=== PATIENT | female | born 1940 | race Caucasian/White ===

== ENCOUNTER → 2016-11-07 | Outpatient (CLI) | payer MEDICARE, OTHER ==
[~2016-11-07] MED LIST: CALC-138 PO; CHOL20003 PO; DULO60CA7 PO; GABA300C PO; HYDR-3138 PO; LEVO150T PO; NAPR1TAB21 PO; ZOLP10TA PO
== END | disposition home or self-care (01) ==
LOC: CFH 11:01
PROVIDERS: ATTEND Family Medicine
DX: Z12.31 Encounter for screening mammogram for malignant neoplasm of breast (principal)
CPT/HCPCS: G0202

== ENCOUNTER → 2017-11-10 | Outpatient (CLI) | payer MEDICARE, OTHER ==
[~2017-11-10] MED LIST changes: +CHOL2000 PO; -CHOL20003 PO; -HYDR-3138 PO; +HYDR-3237 PO
== END ==
LOC: CFH 09:17
PROVIDERS: ATTEND Family Medicine
DX: Z12.31 Encounter for screening mammogram for malignant neoplasm of breast (principal); Z13.820 Encounter for screening for osteoporosis; M81.8 Other osteoporosis without current pathological fracture; N95.9 Unspecified menopausal and perimenopausal disorder
CPT/HCPCS: 77080; 77067

== ENCOUNTER → 2018-02-25 | Outpatient (CLI) | payer MEDICARE, OTHER ==
[~2018-02-25] MED LIST changes: +REGADENOSON 0.4 MG/5 ML SYRINGE ONE
== END | disposition home or self-care (01) ==
LOC: CFH 07:32
PROVIDERS: ATTEND Internal Medicine Cardiovascular Disease
DX: Z01.810 Encounter for preprocedural cardiovascular examination (principal); I35.0 Nonrheumatic aortic (valve) stenosis; I45.10 Unspecified right bundle-branch block; Z87.891 Personal history of nicotine dependence
CPT/HCPCS: 78452; 93017; A9502; J2785

== ENCOUNTER → 2018-11-12 | Outpatient (CLI) | payer MEDICARE, OTHER ==
[~2018-11-12] MED LIST changes: -REGADENOSON 0.4 MG/5 ML SYRINGE ONE
== END | disposition home or self-care (01) ==
LOC: CFH 09:42
PROVIDERS: ATTEND Family Medicine
DX: Z12.31 Encounter for screening mammogram for malignant neoplasm of breast (principal)
CPT/HCPCS: 77063; 77067

== ENCOUNTER → 2019-12-28 | Outpatient (CLI) | payer MEDICARE, OTHER | END | disposition home or self-care (01) | LOC: CFH 12:35 | PROVIDERS: ATTEND Family Medicine | DX: Z12.31 Encounter for screening mammogram for malignant neoplasm of breast (principal) | CPT/HCPCS: 77067 ==

== ENCOUNTER → 2020-02-21 | Outpatient (CLI) | payer MEDICARE, OTHER ==
[~2020-02-21] MED LIST changes: +FLUO40CA2 PO; +MIDO2.5T PO; +PREG150C PO; +PREG75CA PO; +TIZA4TAB2 PO
== END | disposition home or self-care (01) ==
LOC: CFH 11:14
PROVIDERS: ATTEND Internal Medicine Cardiovascular Disease
DX: R55 Syncope and collapse (principal); I49.5 Sick sinus syndrome; I50.9 Heart failure, unspecified; Z95.0 Presence of cardiac pacemaker
CPT/HCPCS: 71046

== ENCOUNTER 2020-02-22 06:09 | Observation (INO) | payer MEDICARE, OTHER ==
[~2020-02-22] VITALS: Ht 170.2 cm; Wt 84.1 kg
[~2020-02-22 06:09] MED LIST changes: -FLUO40CA2 PO; -MIDO2.5T PO; -PREG75CA PO
[2020-02-22] MEDS ORDERED: SODIUM CHLORIDE 0.9% 1,000 ML IV SCH (06:27)
[2020-02-22 06:33] VITALS: BP 148/66
[2020-02-22] MEDS ORDERED: PREG75CA PO (06:43)
[2020-02-22] MEDS ORDERED: MIDO2.5T PO (06:43)
[2020-02-22] MEDS ORDERED: FLUO40CA2 PO (06:43)
[2020-02-22 06:52] LABS: BASOPHILS # (AUTO) 0.05 x10^3/uL (0-0.1); BASOPHILS % (AUTO) 1 % (0-1); EOSINOPHILS # (AUTO) 0.12 x10^3/uL (0-0.4); EOSINOPHILS % (AUTO) 2 % (1-7); LYMPHOCYTES # (AUTO) 1.21 x10^3/uL (1-3.4); LYMPHOCYTES % (AUTO) 16 % (22-44); MD NO; MEAN CORPUSCULAR HEMOGLOBIN 29.7 pg (27.0-34.8); MEAN CORPUSCULAR HGB CONC 32.2 g/dL (32.4-35.8); MEAN CORPUSCULAR VOLUME 92.3 fL (80-100); MEAN PLATELET VOLUME 8.9 fL (7.4-10.4); MONOCYTES # (AUTO) 0.56 x10^3/uL (0.2-0.8); MONOCYTES % (AUTO) 8 % (2-9); NEUTROPHILS # (AUTO) 5.57 x10^3/uL (1.8-6.8); NEUTROPHILS % (AUTO) 74 % (42-75); PLATELET COUNT 212 x10^3/uL (130-400); RED BLOOD COUNT 4.33 x10^6/uL (3.82-5.3); RED CELL DISTRIBUTION WIDTH 14.2 % (9.6-15.2)
[2020-02-22] MEDS ORDERED: MIDAZOLAM 1 MG/ML, 5ML ONE (06:56)
[2020-02-22] MEDS ORDERED: CEFAZOLIN 1,000 MG ONE ×2 (06:57→07:11)
[2020-02-22] MEDS ORDERED: LIDOCAINE 2%, 20ML ONE (06:57)
[2020-02-22] MEDS ORDERED: CEFAZOLIN PMX 1GM/50ML 50 ML ONE (06:57)
[2020-02-22] MEDS ORDERED: FENTANYL PF 100 MCG/2ML ONE (06:57)
[2020-02-22 07:02] LABS: ANION GAP 6 mmol/L (5-15); CALCIUM 8.6 mg/dL (8.5-10.1); CHLORIDE 112 mmol/L (98-107); CREATININE 0.88 mg/dL (0.55-1.02)
[2020-02-22] MEDS: SODIUM CHLORIDE FLUSH 10ML SYR IVF SCH ×2 (09:00→21:42)
[2020-02-22] MEDS ORDERED: HOLD MEDICATION MC PRN (09:00)
[2020-02-22 13:10] VITALS: BP 114/68
[2020-02-22 20:00] VITALS: BP 127/71
[2020-02-22] MEDS ORDERED: ONDANSETRON 2MG/ML, 2ML IVPush PRN (21:00)
[2020-02-22] MEDS: ACETAMINOPHEN 500 MG TABLET PO PRN (21:42)
[2020-02-22] MEDS: PREGABALIN 75 MG CAPSULE PO SCH (21:42)
[2020-02-23 00:37] VITALS: BP 123/70
[2020-02-23] MEDS ORDERED: LEVOTHYROXINE 137 MCG TABLET PO SCH (06:00)
[2020-02-23] MEDS: ACETAMINOPHEN 500 MG TABLET PO PRN (06:14)
[2020-02-23 08:21] VITALS: BP 122/68
[2020-02-23] MEDS: SODIUM CHLORIDE FLUSH 10ML SYR IVF SCH (09:00)
[2020-02-23] MEDS: PREGABALIN 75 MG CAPSULE PO SCH (10:26)
== END 2020-02-23 11:30 | disposition home or self-care (01) ==
LOC: CACL 06:09 → 5SO 08:34 → DCLOUNGE 02-23 11:18
PROVIDERS: ADMIT Internal Medicine Clinical Cardiac Electrophysiology; ATTEND Internal Medicine Clinical Cardiac Electrophysiology
DX: T82.128A Displacement of other cardiac electronic device, initial encounter (principal); R00.1 Bradycardia, unspecified; R00.2 Palpitations; I45.4 Nonspecific intraventricular block; F32.9 Major depressive disorder, single episode, unspecified; K21.9 Gastro-esophageal reflux disease without esophagitis; E78.5 Hyperlipidemia, unspecified; E03.9 Hypothyroidism, unspecified; C26.0 Malignant neoplasm of intestinal tract, part unspecified; Z95.0 Presence of cardiac pacemaker; Z79.899 Other long term (current) drug therapy
CPT/HCPCS: 33215; 36415; 71045; 80048; 85025; 93005; 99156; 99157; G0378; J0690; J2250; J3010; J3490

== ENCOUNTER → 2020-12-28 | Outpatient (CLI) | payer MEDICARE, OTHER ==
[~2020-12-28] MED LIST changes: +FLUO40CA2 PO; +MIDO2.5T PO; +PREG75CA PO
== END | disposition home or self-care (01) ==
LOC: CFH 09:53
PROVIDERS: ATTEND Internal Medicine
DX: Z12.31 Encounter for screening mammogram for malignant neoplasm of breast (principal)
CPT/HCPCS: 77063; 77067